=== PATIENT | male | born 1985 | race Caucasian/White ===

== ENCOUNTER 2018-06-12 12:43 | Outpatient (CLI) | payer OTHER ==
--- NOTE | 2018-06-12 17:37 | MRI Report ---
Reason: LOW BACK PAIN Procedure Date: 06/12/2018 Accession Number: [id number] / [id number] Procedure: MRI - Lumbar Spine W/O CPT Code: FULL RESULT: MRI LUMBAR SPINE WITHOUT CONTRAST INDICATION: 32-year-old male. Low back and bilateral hip pain. TECHNIQUE: 1. Sagittal STIR, T1 and T2. 2. Axial T1 and T2. COMPARISON: None. FINDINGS: There appear to be 5 [id number], lumbar type vertebrae. There is straightening of the lumbar alignment with absence of typical lumbar lordosis. In addition, there is minor, stepwise retrolisthesis of L4 on L5 and L5 on S1 measuring roughly 2-3 mm at both levels. Alignment is otherwise unremarkable. There is minimal anterior wedging of the T11, T12 and L1 vertebral bodies. This can be seen as a normal anatomical variant at the thoracolumbar junction. The vertebral body heights are otherwise preserved. There is absence of normal T2 signal from the disks at all levels from L1-L2 to L5-S1, confirming disk degeneration. By comparison the T12-L1 disk continues to be relatively well hydrated. There is mild disk space narrowing at L4-L5 posteriorly. The lumbar disk space heights are otherwise relatively preserved. The marrow signal intensity is unremarkable. The conus terminates in an appropriate fashion at about the L1-L2 disk level. Abnormal thickening or lipomatous change of the filum. Axial images: T12-L1: No disk herniation. No spinal canal or foraminal stenosis. L1-L2: No disk herniation. No spinal canal or foraminal stenosis. L2-L3: Minimal disk bulge with tiny intraforaminal protrusions bilaterally. No spinal stenosis. Minimal foraminal narrowing. L3-L4: There is a small, left paracentral extrusion with minor craniad migration of a very small amount of extruded or sequestered disk material in the ventral epidural space along the dorsal margin of the mid to lower L3 vertebral body. Mild mass effect on the ventral aspect of the thecal sac. No significant central zone or subarticular zone narrowing. Small left intraforaminal/extraforaminal protrusion. Degenerative facet arthrosis without significant bony hypertrophy. Mild right and mild to moderate left foraminal stenoses. L4-L5: Retrolisthesis. Minor circumferential disk bulge. Small posterior central extrusion. Degenerative facet arthrosis without bony hypertrophy. Mild redundancy of the ligamenta flava. Mild generalized (central and subarticular zone) spinal stenosis. Broad-based intraforaminal/extraforaminal protrusions bilaterally. Mild foraminal stenoses. L5-S1: Tiny posterior central extrusion with minimal caudal migration. Degenerative facet arthrosis without bony hypertrophy. No spinal stenosis. Small intraforaminal/extraforaminal protrusions with associated intraforaminal osteophyte. Mild foraminal stenoses. IMPRESSION: 1. Degenerative disk and facet changes are seen in the lumbar spine as documented in detail above. 2. No significant appearing spinal canal or foraminal stenosis is demonstrated. There is no evidence of neural impingement.
== END 2018-06-12 12:44 | disposition home or self-care (01) ==
LOC: DI 12:43
PROVIDERS: ATTEND Anesthesiology Pain Medicine
DX: M47.9 Spondylosis, unspecified (principal); M51.36 Other intervertebral disc degeneration, lumbar region; M51.26 Other intervertebral disc displacement, lumbar region; M43.16 Spondylolisthesis, lumbar region; M51.27 Other intervertebral disc displacement, lumbosacral region
CPT/HCPCS: 72148

== ENCOUNTER 2018-08-09 09:22 | Emergency (ER) | payer OTHER ==
[2018-08-09 09:30] VITALS: BP 132/76
--- NOTE | 2018-08-09 09:44 | ED Physician Documentation ---
PD HPI URI - Stated complaint Stated Complaint: R EAR PX - Chief complaint Chief Complaint: Heent - History obtained from History obtained from: Patient - History of Present Illness Timing - onset: How many days ago (3-4) Timing duration: Days (3-4) Timing details: Gradual onset, Still present Associated symptoms: Fever (yesterday), Ear pain (right ear) Contributing factors: No: Sick contact Worsened by: Position (head to right side hurts more) Similar symptoms before: Has not had sx before (had ear infection when he was 14 years old. No recent problems.) Recently seen: Not recently seen Review of Systems Constitutional: denies: Fever, Chills Ears: reports: Ear pain, Drainage/discharge (mild). denies: Loss of hearing Nose: denies: Rhinorrhea / runny nose, Congestion Throat: denies: Sore throat Respiratory: denies: Cough Skin: denies: Rash, Lesions Musculoskeletal: denies: Neck pain, Back pain Neurologic: reports: Generalized weakness. denies: Focal weakness, Numbness, Difficulty speaking, Near syncope PD PAST MEDICAL HISTORY - Past Medical History Past Medical History: No Endocrine/Autoimmune: None HEENT: None - Past Surgical History Past Surgical History: No - Present Medications Home Medications: Ambulatory Orders Medication Instructions Recorded Confirmed Cephalexin [Keflex] 500 mg PO Q6H #24 capsule 08/09/18 Ciproflox/Dexameth Otic Drops 4 drops OT TID #1 bottle 08/09/18 [Ciprodex] Hydrocodone/Acetaminophen [[place] 1 each PO Q6H PRN #10 tablet 08/09/18 5-325 Tablet] - Allergies Allergies/Adverse Reactions: Allergies Allergy/AdvReac Type Severity Reaction Status Date / Time No Known Drug Allergies Allergy Verified 08/09/18 09:30 - Social History Does the pt smoke?: No Smoking Status: Former smoker Does the pt drink ETOH?: Yes ETOH Use: Beer Does the pt have substance abuse?: No - Immunizations Immunizations are current?: Yes PD ED PE NORMAL - Vitals Vital signs reviewed: Yes - General General: Alert and oriented X 3, No acute distress, Well developed/nourished - HEENT HEENT: Atraumatic, PERRL, Pharynx benign. No: Ears normal (left is normal. Right with redness and swelling of ear canal. There is redness extending to preauricular area. Some exudate in the middle part of the canal. ) - Neck Neck: Supple, no meningeal sign, Other (preauricular lymph node felt. Mastoid te) - Cardiac Cardiac: RRR, No murmur - Respiratory Respiratory: Clear bilaterally - Derm Derm: Normal color, Warm and dry Results - Vitals Vitals: Vital Signs - 24 hr 08/09/18 09:28 Temperature 36.7 C Heart Rate 79 Respiratory 16 Rate Blood Pressure 132/76 H O2 Saturation 99 Oxygen O2 Source Room air PD MEDICAL DECISION MAKING - ED course Complexity details: considered differential, d/w patient Departure - Departure Disposition: 01 Home, Self Care Clinical Impression: Cellulitis of right ear canal Otitis externa Qualifiers: Otitis externa type: other infective Chronicity: acute Laterality: right Qualified Code(s): H60.391 - Other infective otitis externa, right ear Condition: Stable Record reviewed to determine appropriate education?: Yes Instructions: ED Infec Skin Cellulitis, ED Otitis Externa Follow-Up: THERESA GOLDEN [Primary Care Provider] - Prescriptions: Cephalexin [Keflex] 500 mg PO Q6H #24 capsule Ciproflox/Dexameth Otic Drops [Ciprodex] 4 drops OT TID #1 bottle Hydrocodone/Acetaminophen [[place] 5-325 Tablet] 1 each PO Q6H PRN #10 tablet PRN Reason: Pain Comments: Use some ibuprofen or naproxen couple of times a day for basic pain. Add Tylenol or hydrocodone if needed for worse pain. The ear canal does look infected as is the tissue around it so we will treated with antibiotic and anti-inflammatory eardrops (Ciprodex) 3 times a day as well as oral antibiotics cephalexin as directed. This should improve over the next several days and be cleared by 4-5 days. Off work today tomorrow if needed for discomfort. Recheck if not improved over the next several days. Forms: Activity restrictions Discharge Date/Time: 08/09/18 10:28
[2018-08-09] MEDS ORDERED: IBUPROFEN 600 MG TABLET PO STA (10:04)
[2018-08-09] MEDS ORDERED: ACETAMINOPHEN 325 MG TABLET PO STA (10:05)
[2018-08-09] MEDS ORDERED: cephALEXin 250 MG CAPSULE PO STA (10:05)
== END 2018-08-09 10:28 | disposition home or self-care (01) ==
LOC: ED 09:22
DX: H60.11 Cellulitis of right external ear (principal)
CPT/HCPCS: 99283; A9270